=== PATIENT | male | born 1945 | race Two or more races ===

== ENCOUNTER 2018-08-10 15:13 | Emergency (ER) | payer MEDICARE, MEDICAID ==
[~2018-08-10] VITALS: Ht 165.1 cm; Wt 70.0 kg
[2018-08-10] MEDS ORDERED: KETOROLAC 60MG/2ML VIAL IM ONE (20:15)
[2018-08-10 20:34] VITALS: BP 110/69
== END 2018-08-10 21:00 | disposition home or self-care (01) ==
LOC: ER 15:13
DX: M54.41 Lumbago with sciatica, right side (principal); I10 Essential (primary) hypertension; Z98.890 Other specified postprocedural states; Z87.891 Personal history of nicotine dependence; Z88.2 Allergy status to sulfonamides
CPT/HCPCS: 96372; 99283; J1885